=== PATIENT | male | born 1985 | race African-American/Black ===

== ENCOUNTER 2018-09-06 11:20 | Emergency (ER) | payer OTHER, MEDICAID ==
[2018-09-06 20:08] LABS: PLATELET COUNT 207 10^3/uL (150-400)
--- NOTE | 2018-09-06 21:40 | ASMTTCLDSP ---
TLC Discharge Disposition Disposition: Answers: Discharge If Answers: Yes DISCHARGED: Patient/family given suicide hotline info & SAMHSA brochure? Disposition Notes: Notes: In consultation with [facility] it was concurred that pt does not appear to meet 27-65 criteria requiring psychiatric hospitalization as pt does not appear to be an imminent risk of harm to self/others/gravely disabled due to a mental illness condition Pt stated commitment or ability to keep self safe, denied thoughts of self harm or harm to others. Pt expressed a desire to f/u with [facility] and follow up with [facility] providers. Pt has a scheduled MH appointment with Psychiatrist on 09/21. Pt showed TLC card with appointment. He appears motivated to follow up with his treatment including taking his medications as prescribed. Discharge Concerns/Recommendations: Notes: Referred to homeless custodial and f/u with [facility]. Date Signed: 09/06/2018 09:40 PM Electronically Signed By:Anais Minor
[2018-09-06 21:42] VITALS: BP 108/72
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
== END 2018-09-06 16:05 | disposition home or self-care (01) ==
PROC: GZ11ZZZ Psychological Tests, Personality and Behavioral (ICD-10-PCS; principal; 2018-09-06)
DX: F32.9 Major depressive disorder, single episode, unspecified (principal)
CPT/HCPCS: 80305; G0480